=== PATIENT | male | born 1955 | race Caucasian/White ===

== ENCOUNTER 2021-09-11 11:39 | Inpatient (IN) | payer OTHER ==
[~2021-09-11] VITALS: Ht 190.5 cm; Wt 118.0 kg
[~2021-09-11 11:39] MED LIST: DHEA50 MG PO; NORCO 5-325 TA1 EACH PO; ZYRTEC10 M3 PO
[2021-09-11 12:27] LABS: BASOPHIL 0.6 % (0-2); EOSINOPHIL 0.3 % (0-7); HCT 47.9 % (42.0-52.0); HGB 14.8 g/dl (13.2-18.0); LYMPHOCYTE 21.2 % (15-48); MCHC 30.9 g/dL (32.0-36.0); MCV 90.7 fL (78.0-100.0); MPV 12.8 fL (6.0-9.5); NEUTROPHIL 69.6 % (41-80); NRBC 0; PLT 268 K/uL (150-400); RBC 5.28 M/uL (4.70-6.00); RDW 15.9 % (11.5-14.0)
[2021-09-11 12:31] LABS: INR 1.18 (0.9-1.2); PROTHROMBIN TIME 14.4 SECONDS (11.8-13.4); PTT 27.6 SECONDS (24.4-34.7)
[2021-09-11 12:35] LABS: IRON % SATURATION 21.7 %SAT (20-50)
[2021-09-11 12:43] LABS: ALBUMIN 3.1 g/dL (3.4-5.0); ALKALINE PHOSHATASE 115 U/L (46-116); ALT 165 U/L (16-63); AST 90 U/L (15-37); BILIRUBIN - TOTAL 1.6 mg/dL (0.2-1.0); BUN 27 mg/dL (7-18); BUN/CREAT RATIO (CALC) 22.7 RATIO; CHLORIDE 103 mmol/L (98-107); CO2 (BICARBONATE) 29 mmol/L (21-32); CREATININE 1.19 mg/dL (0.67-1.17); GLOBULIN (CALCULATION) 3.7 g/dL; GLUCOSE 101 mg/dL (74-106); LIPASE 85 U/L (73-393); POTASSIUM 3.5 mmol/L (3.5-5.1); TOTAL PROTEIN 6.8 g/dL (6.4-8.2)
[2021-09-11 16:26] LABS: BILIRUBIN NEGATIVE (NEGATIVE); BLOOD NEGATIVE Ery/uL (NEGATIVE); CLARITY CLEAR (CLEAR); COLOR YELLOW (YELLOW); GLUCOSE (U) NORMAL (NORMAL); LEUKOCYTES NEGATIVE Leu/uL (NEGATIVE); NITRITE NEGATIVE (NEGATIVE); PROTEIN TRACE (LOW) mg/dL (NEGATIVE); UROBILINOGEN 0.2 mg/dL (0.2-1.0); pH 5.5 (5.0-9.0)
[2021-09-11 16:38] LABS: BACTERIA 1+; MUCOUS TRACE
[2021-09-11] MEDS ORDERED: PRINIVIL10 MG PO (21:19)
[2021-09-12 02:14] LABS: BASOPHIL 0.6 % (0-2); HCT 43.8 % (42.0-52.0); HGB 13.7 g/dl (13.2-18.0); LYMPHOCYTE 22.8 % (15-48); MCH 28.1 pg (25.0-31.0); MCHC 31.3 g/dL (32.0-36.0); MCV 89.9 fL (78.0-100.0); MPV 12.7 fL (6.0-9.5); NEUTROPHIL 67.2 % (41-80); NRBC 0; PLT 243 K/uL (150-400); RBC 4.87 M/uL (4.70-6.00); RDW 15.8 % (11.5-14.0); WBC 8.2 K/uL (4.0-10.5)
[2021-09-12 02:43] LABS: ALBUMIN 2.8 g/dL (3.4-5.0); BILIRUBIN - DIRECT 0.5 mg/dL (0.00-0.20); BILIRUBIN - TOTAL 1.2 mg/dL (0.2-1.0); BUN/CREAT RATIO (CALC) 22.7 RATIO; CREATININE 1.19 mg/dL (0.67-1.17); GLOBULIN (CALCULATION) 3.3 g/dL; POTASSIUM 3.5 mmol/L (3.5-5.1); TOTAL PROTEIN 6.1 g/dL (6.4-8.2)
[2021-09-13 05:41] LABS: BASOPHIL 0.8 % (0-2); EOSINOPHIL 1.2 % (0-7); HCT 49.2 % (42.0-52.0); HGB 14.6 g/dl (13.2-18.0); LYMPHOCYTE 16.8 % (15-48); MCH 27.9 pg (25.0-31.0); MCHC 29.7 g/dL (32.0-36.0); MONOCYTE 7.3 % (0-12); MPV 12.8 fL (6.0-9.5); NEUTROPHIL 73.6 % (41-80); NRBC 0; PLT 269 K/uL (150-400); RBC 5.23 M/uL (4.70-6.00); RDW 16.1 % (11.5-14.0)
[2021-09-13 05:52] LABS: MCV 94.1 fL (78.0-100.0)
[2021-09-13 05:56] LABS: BUN/CREAT RATIO (CALC) 22.9 RATIO; CREATININE 1.18 mg/dL (0.67-1.17); POTASSIUM 4.1 mmol/L (3.5-5.1)
[2021-09-13 06:08] LABS: TOTAL CELL COUNT 100
[2021-09-13 06:12] LABS: BAND 1 % (0-10); NEUTROPHILS(M) 70 % (41-80)
[2021-09-13 06:13] LABS: EOSINOPHIL(M) 1 % (0-7); LYMPHOCYTE(M) 22 % (15-48); METAMYELOCYTE 5; MONOCYTE(M) 1 % (0-12); PLATELET ESTIMATE NORMAL; PLATELET MORPHOLOGY NORMAL
--- NOTE | 2021-09-13 06:19 | NUR ---
@ 0500 CIWA SCORE IS 38. SEE EMAR FOR MEDICATION ADMINISTRATION. RN SITTING 1:1 AT BEDSIDE WITH PATIENT AT THIS TIME. R ARMIDA MEDIA RELATIONS MANAGER AWARE AT THIS TIME
--- NOTE | 2021-09-13 06:47 | NUR ---
0600 CIWA SCORE = 34. SEE EMAR FOR MEDICATION ADMINISTRATION. R ARMIDA AWARE OF PATIENTS STATUS AT THIS TIME. RN SITTING 1:1 WITH PATIENT AT BEDSIDE AT THIS TIME
--- NOTE | 2021-09-13 11:14 | NUR ---
09 TRANSFERED PT TO ICU 3 ORDERED. EDWIN AND LAWRENCE AGUIRRE ASSISTED WITH TRANSFER. PT INCREASINGLY AGIATED AND COMBATIVE. PT TRANSFERED TO ICU BED BRIEF CHANGED. 09 IV PRECEDEX BROUGHT IN BY PHARMACY AND STARTED 0.2MCG/KG/HR QUICKLY TITRATED UP TO 1.4MCG/KH/HR OR 41.7ML/HR PT COMBATIVE KICKING, HITTING OUT ATTEMPTED TO BITE. NOT VERBILIZING. 0918 RESTRAINTS VERBALLY ORDER BY DR. NEAL WHO IS AT BEDSIDE WHO IS ASSISTING WITH PREVENTING PT FROM PULLING OUT IV'S AND KICKING STAFF. 0920 2MG IV ATIVAN GIVEN PER CIWA PROTOCOL. 0924 ROUSSEAU PLACED BY ROJAS AGUIRRE 0930 PT NOW RESTING 0940 PT MOUTH BREATHING AND DESATES 31% VENTI MASK APPLIED
--- NOTE | 2021-09-13 12:23 | NUR ---
1215-PT. BEING BAGGED-V/S 107/55, 69 HR, 16 RESP., 92% 1216-ETOMIDATE 40 MG IV GIVEN, V/S 111/66, 77 HR, 28 RESP., 97% 1218-SUCCINYLCHOLINE 180 MG IV GIVEN, V/S 72 HR, 29 RESP., 100% 1219-PT. INTUBATED WITH 7.5 ET TUBE, 26 AT THE LIP. VS-134/61, 86 HR, 14 RESP., 100% O2 SAT. 1220-PROPOFOL GTT STARTED AT 5 MCG/KG/MIN=3.6 ML/HR. VENT SETTINGS: A/C, TV 640, FIO2 100%, PEEP 5.0, RATE 14.
--- NOTE | 2021-09-13 12:50 | NUR ---
1228 OG TUBE PLACED BY ROJAS AGUIRRE W/O PHIL
[2021-09-14 04:34] LABS: BASOPHIL 0.6 % (0-2); EOSINOPHIL 2.1 % (0-7); HCT 44.3 % (42.0-52.0); HGB 13.3 g/dl (13.2-18.0); LYMPHOCYTE 11.1 % (15-48); MCH 27.9 pg (25.0-31.0); MCV 92.9 fL (78.0-100.0); MPV 12.8 fL (6.0-9.5); NEUTROPHIL 77.9 % (41-80); NRBC 0; PLT 234 K/uL (150-400); RBC 4.77 M/uL (4.70-6.00); RDW 15.9 % (11.5-14.0); WBC 11.4 K/uL (4.0-10.5)
[2021-09-14 04:40] LABS: ALBUMIN 2.3 g/dL (3.4-5.0); BILIRUBIN - TOTAL 1.3 mg/dL (0.2-1.0); BUN/CREAT RATIO (CALC) 18.7 RATIO; CREATININE 1.39 mg/dL (0.67-1.17); POTASSIUM 3.5 mmol/L (3.5-5.1); TOTAL PROTEIN 5.3 g/dL (6.4-8.2)
[2021-09-14 05:02] LABS: TOTAL CELL COUNT 100
[2021-09-14 05:11] LABS: BAND 0 % (0-10); BASOPHIL(M) 0 % (0-2); EOSINOPHIL(M) 0 % (0-7); LYMPHOCYTE(M) 7 % (15-48); MONOCYTE(M) 7 % (0-12); NEUTROPHILS(M) 86 % (41-80)
[2021-09-14 05:12] LABS: PLATELET ESTIMATE NORMAL; PLATELET MORPHOLOGY NORMAL
--- NOTE | 2021-09-14 13:26 | NUR ---
09/14/21 Mr. Rashid is current ventilated. A social work / discharge planning assessment will be conducted when patient is able to participate.
--- NOTE | 2021-09-14 15:59 | NUR ---
Consult placed and acknowledged by RD for nutrition support this date. Patient being tranferred to other facility for care before assessment could be completed.
--- NOTE | 2021-09-14 18:31 | NUR ---
1630 PT TRANSFERRED BY EMS TO [facility], HE NEEDS AND ECHO AND MRI AN ARE UNABLE TO DO AT THIS TIME DUE TO NO ONE TO PREFORM ECHO AND CANT TAKE OUR VENT INTO MRI AREA, PT IS STABLE AT TIME OF DISCHARGE, BELONGING SENT WITH HIS SON, ANDRE ALSO NOTIFIED OF THE TRANSFER
== END 2021-09-14 16:30 | disposition other institution (70) | DRG 291 ==
LOC: FER 11:39 → FTCU 18:30 → FICU 18:30 → FTCU 19:28 → FICU 09-13 08:53
PROVIDERS: Emergency Medicine; Nurse Practitioner Family; ADMIT Family Medicine
PROC: 5A1945Z Respiratory Ventilation, 24-96 Consecutive Hours (ICD-10-PCS; principal; 2021-09-13)
PROC: 0BH17EZ Insertion of Endotracheal Airway into Trachea, Via Natural or Artificial Opening (ICD-10-PCS; 2021-09-13)
PROC: 02HV33Z Insertion of Infusion Device into Superior Vena Cava, Percutaneous Approach (ICD-10-PCS; 2021-09-13)
PROC: 03HY32Z Insertion of Monitoring Device into Upper Artery, Percutaneous Approach (ICD-10-PCS; 2021-09-13)
PROC: 4A133B1 Monitoring of Arterial Pressure, Peripheral, Percutaneous Approach (ICD-10-PCS; 2021-09-13)
PROC: 4A133J1 Monitoring of Arterial Pulse, Peripheral, Percutaneous Approach (ICD-10-PCS; 2021-09-13)
PROC: HZ2ZZZZ Detoxification Services for Substance Abuse Treatment (ICD-10-PCS; 2021-09-13)
PROC: 3E033XZ Introduction of Vasopressor into Peripheral Vein, Percutaneous Approach (ICD-10-PCS; 2021-09-13)
DX: I13.0 Hypertensive heart and chronic kidney disease with heart failure and stage 1 through stage 4 chronic kidney disease, or unspecified chronic kidney disease (principal); I50.41 Acute combined systolic (congestive) and diastolic (congestive) heart failure; G93.41 Metabolic encephalopathy; R57.0 Cardiogenic shock; J96.91 Respiratory failure, unspecified with hypoxia; J96.92 Respiratory failure, unspecified with hypercapnia; N17.9 Acute kidney failure, unspecified; F10.231 Alcohol dependence with withdrawal delirium; R18.8 Other ascites; Z20.822 Contact with and (suspected) exposure to COVID-19; I50.811 Acute right heart failure; I48.91 Unspecified atrial fibrillation; N18.2 Chronic kidney disease, stage 2 (mild); R77.8 Other specified abnormalities of plasma proteins; K40.90 Unilateral inguinal hernia, without obstruction or gangrene, not specified as recurrent; G47.33 Obstructive sleep apnea (adult) (pediatric); G47.00 Insomnia, unspecified; R74.8 Abnormal levels of other serum enzymes; R73.03 Prediabetes; Z28.310 Unvaccinated for COVID-19; Z85.828 Personal history of other malignant neoplasm of skin; Z88.5 Allergy status to narcotic agent; Z88.8 Allergy status to other drugs, medicaments and biological substances; Z98.890 Other specified postprocedural states
CPT/HCPCS: 31500; 36415; 36600; 70450; 71045; 71275; 74018; 80048; 80053; 80076; 80162; 81001; 82803; 83036; 83540; 83550; 83690; 83735; 83880; 84439; 84443; 84484; 85025; 85610; 85730; 93005; 94002; 94010; C9113; G0480; J0282; J0360; J1160; J1265; J1630; J1650; J1940; J2060; J2250; J2550; J2560; J2704; J3010; J3411; J3475; J7030; J7060; J7120; U0002